=== PATIENT | male | born 1955 | race Caucasian/White ===

== ENCOUNTER 2018-01-09 10:13 | Day surgery (SDC) | payer OTHER, SELFPAY ==
[2018-01-01 15:37] VITALS: BMI 32.0
[2018-01-09] VITALS (7 sets, daily range): BP systolic 110–133; BP diastolic 65–88; PULSE 78–99; RESP 13–19; TEMP 36.3–36.7; O2SAT 94–97; BMI 31.7
[2018-01-09] MEDS: LACTATED RINGERS 1,000 ML 42 ML IV (10:45)
--- NOTE | 2018-01-09 12:04 | PM.PREOP ---
Pre-operative Note Interval Note Pre-op Check: Yes History & Physical Reviewed by Physician and Yes Exam Performed Changes: No
[2018-01-09] MEDS: fentaNYL 100 MCG/2 ML INJ 50 MCG IV (13:15)
[2018-01-09] MEDS: MIDAZOLAM 2 MG/2 ML VIAL IV (13:16)
--- NOTE | 2018-01-09 13:38 | SUR.PREOP ---
Patient voided prior to nerve block, anesthesia informed.
[2018-01-09] MEDS: CEFAZOLIN VIAL 2 GM in SODIUM CHLORIDE 0.9% 100 ML 200 ML IV (13:40)
[2018-01-09] MEDS: BUPIVACAINE 0.5% W/ EPI (PF) 30 ML VIAL INJ (14:10)
--- NOTE | 2018-01-09 14:10 | SUR.OPER ---
Beach chair on padded OR bed. Head on gel donut secured with tape over gauze. Non-operative arm secured <90 degrees abduction on padded arm board with pillow. Pillow under knees and heels. Safety belt at thigh. Cloth tape over blanket over lower legs.
--- NOTE | 2018-01-09 15:01 | SUR.OPER ---
Beach chair on padded OR bed. Head on gel donut secured with tape over gauze. Non-operative arm secured <90 degrees abduction on padded arm board. Pillow under knees and heels. Safety belt at thigh. Cloth tape over blanket over lower legs.
--- NOTE | 2018-01-09 15:15 | PM.OP.1 ---
Operative Date/Time/Diagnoses Date of procedure: 01/09/18 Time of procedure: 14:30 Pre-op diagnosis: Right rotator cuff tear of subscapularis and supraspinatus tendons Post-op diagnosis: same Procedure & Clinicians Procedure: Open right rotator cuff repair Same procedure as scheduled: Yes Indications: The patient is a 62-year-old gentleman who injured his right shoulder at work. An MRI has shown rotator cuff tear including the supraspinatus and subscapularis. He appears to have a biceps rupture. He has agreed to repair of the supraspinatus and subscapularis through an open approach after discussion the risks benefits and alternatives. Risks discussed included but were not limited to: Failure to improve either pain or function, nerve damage, infection, deep venous thrombosis, pulmonary embolism, stroke, myocardial infarction, permanent paralysis and . Surgeon: Jian Stoner Dough Mixing Machine Operator: Marya Correia Click Yes if Unassisted: No Anesthesia Type: General, Peripheral nerve block and Local Operative Notes Findings: Full thickness tearing of the posterior aspect of the supraspinatus and partial-thickness tearing of the anterior portion of the supraspinatus and upper portion of the subscapularis. There was an absent biceps. Closure Type: primary Specimen(s): none sent Implants & Drains: Three suture anchors, Mitek Healix BR 5.5 mm double threaded rotator cuff anchors. Applied: implant(s) Estimated Blood Loss (mL): 10 Blood products transfused: none Tourniquet time (min): 0 Procedure in detail: The patient was seen in the preoperative area we identified his right shoulder as the operative site and this was marked with my initials. He received preoperative antibiotics and underwent the induction of an interscalene block for postoperative pain control. He was taken to the operating room and placed on the operating room table in a supine position where he underwent the induction of a general anesthetic. He was then repositioned in the ?beach chair? position on the standard operating room table. A towel roll was placed behind the scapula to protract the shoulder. The right arm was prepared from the fingertips to the base of the neck with ChloraPrep in the usual fashion and draped through sterile drapes. The subcutaneous landmarks were outlined on the skin with a marking pen and an incision site selected. This area was injected with 0.5% Marcaine with epinephrine for hemostasis. An incision was made and subcutaneous flaps were elevated. The anterior raphe a of the deltoid was split to 5 cm off the anterior corner of the acromion. A suture was placed at the end of the split to prevent propagation into the axillary nerve. The full-thickness tear of the posterior aspect of the supraspinatus was readily identified after removing hypertrophic bursa. The partial-thickness tearing of the supraspinatus was then completed and the rotator interval opened to allow access to the upper portion of the subscapularis. The greater tuberosity was denuded to bleeding bone using a curette and rongeur. This was repeated for the lesser tuberosity. Three anchors were placed 1 in the upper portion of the lesser tuberosity, 2 were placed in the greater tuberosity. The sutures from the 3 anchors were placed with a horizontal mattress suture and a simple suture from each anchor placed in such a fashion that the simple suture was a grasping suture around the mattress suture. The rotator interval was closed with additional Orthocord suture. This provided an excellent repair of the rotator cuff. The wound was copiously irrigated. Hemostasis was obtained with electrocautery. The deltoid was reapproximated with 0 Vicryl. Subcutaneous layer was closed with 3 0 Vicryl and the skin with running 3 0 V lock suture and Steri-Strips. The patient was taken to the recovery room in good condition having tolerated the procedure well. Complications: none Condition: stable Disposition: PACU Plan for aftercare: The patient will be maintained on a standard medium size rotator cuff tear protocol with subscapularis precautions. He appears to be having excellent pain control from his block and currently the plan is to discharge him today.
[2018-01-09] MEDS: OXYCODONE/ACETAMINOPHEN 5/325 TABLET 1 TAB PO (15:27)
--- NOTE | 2018-01-09 15:35 | SUR.PHASEI ---
stable pacu stay, malinda braswell and aby to bedside, spoke with pt.
--- NOTE | 2018-01-09 15:59 | SUR.PHASEII ---
ASSISTED TO BR, STEADY WHEN UP TOOK PERSCRIPTION TO GET FILLED, PT ANXIOUS TO GO HOME, AWAITING RETURN OF .
--- NOTE | 2018-01-09 16:24 | SUR.PHASEII ---
RETURNED, READY FOR D/C, VOICED AN UNDERSTANDING OF D/C INSTRUCTIONS PT LEFT IN STABLE CONDITION
== END 2018-01-09 16:24 | disposition home or self-care (01) ==
LOC: OR 10:15 → AC 10:16
PROVIDERS: PCP Family Medicine; Visit Provider Orthopaedic Surgery
PROC: (CPT 23410; principal; 2018-01-09 12:15)
DX: M75.121 Complete rotator cuff tear or rupture of right shoulder, not specified as traumatic (principal); S46.911A Strain of unspecified muscle, fascia and tendon at shoulder and upper arm level, right arm, initial encounter; E11.9 Type 2 diabetes mellitus without complications; Z79.4 Long term (current) use of insulin; Z87.891 Personal history of nicotine dependence; I25.2 Old myocardial infarction; I10 Essential (primary) hypertension; Z86.711 Personal history of pulmonary embolism; G89.18 Other acute postprocedural pain
CPT/HCPCS: 23410; 64450; J0690; J2250; J2405; J2704; J3010